=== PATIENT | male | born 1940 | race Caucasian/White ===

== ENCOUNTER 2020-04-15 10:46 | Day surgery (SDC) | payer MEDICARE, BC ==
[~2020-04-15] VITALS: Ht 177.8 cm; Wt 98.4 kg
[~2020-04-15 10:46] MED LIST: ALBU90OI INH; ALBU90OI6; ALBU90OI61; AMLO5 PO; AMOCLA875 PO; ASPI81CH; ASPI81CH PO; Aspir 8181 MG PO; Aspirin EC81 MG PO; COQ-10100 MG PO; Diovan320 MG; Diovan320 MG PO; FLONASE ALLERG9.9 M2; FLOVENT HFA12 GM; FLUT110OIA; FLUT44OIA; MONT10T; MONT10T PO; Miralax17 GM PO; NEBI5 PO; OMEP20ER; OMEPRAZOLE MAGN20 MG PO; SILD25T PO; SIMV40 PO; UBID10; Viagra100 MG PO; Zocor20 MG
[2020-04-15] MEDS ORDERED: LISI20 PO (11:28)
--- NOTE | 2020-04-15 12:12 | NUR ---
04/15/[address] RUNNING BEHIND. PT NOTIFIED,STATES COMFORTABLE,FAMILY NOT NEEDED TO BE NOTIFIED,CALL LIGHT WITHIN REACH.
--- NOTE | 2020-04-15 13:42 | NUR ---
04/15/20 1342 MERI RIOS UPON DC PT WAS UNABLE TO LOCATE WHITE UNDERSHIRT WITH HELP FROM STAFF.
== END 2020-04-15 13:40 | disposition home or self-care (01) ==
LOC: ORSCSDS 10:46
PROVIDERS: Internal Medicine Gastroenterology
PROC: 0DBH8ZX Excision of Cecum, Via Natural or Artificial Opening Endoscopic, Diagnostic (ICD-10-PCS; principal; 2020-04-15 12:00)
PROC: 0DBM8ZX Excision of Descending Colon, Via Natural or Artificial Opening Endoscopic, Diagnostic (ICD-10-PCS; principal; 2020-04-15 12:00)
PROC: 0DBK8ZX Excision of Ascending Colon, Via Natural or Artificial Opening Endoscopic, Diagnostic (ICD-10-PCS; principal; 2020-04-15 12:00)
DX: Z12.11 Encounter for screening for malignant neoplasm of colon (principal); Z86.010 Personal history of colon polyps; D12.0 Benign neoplasm of cecum; D12.2 Benign neoplasm of ascending colon; D12.4 Benign neoplasm of descending colon; K57.30 Diverticulosis of large intestine without perforation or abscess without bleeding; K64.8 Other hemorrhoids; Z87.891 Personal history of nicotine dependence; I10 Essential (primary) hypertension; J45.909 Unspecified asthma, uncomplicated; Z85.46 Personal history of malignant neoplasm of prostate; Z79.899 Other long term (current) drug therapy
CPT/HCPCS: 88305; J2704; J7120

== ENCOUNTER → 2020-11-19 | Outpatient (CLI) | payer MEDICARE, BC ==
[~2020-11-19] MED LIST changes: +LISI20 PO
== END | disposition home or self-care (01) ==
LOC: LAB SHORT 10:44 → LAB 10:44
DX: D22.5 Melanocytic nevi of trunk (principal)
CPT/HCPCS: 88305; 88342

== ENCOUNTER → 2020-11-27 | Outpatient (CLI) | payer MEDICARE, BC | END | disposition home or self-care (01) | LOC: LAB SHORT 08:00 → LAB 08:00 | DX: D22.5 Melanocytic nevi of trunk (principal) | CPT/HCPCS: 88305 ==

== ENCOUNTER 2023-09-22 06:25 | Day surgery (SDC) | payer MEDICARE, BC ==
[~2023-09-22] VITALS: Ht 177.8 cm; Wt 90.6 kg
[~2023-09-22 06:25] MED LIST changes: +Lactated Ringer's 1,000 ML IV ONE
[2023-09-22] MEDS ORDERED: FentaNYL Citrate 50 MCG/ML 2 ML Injection ONE ×2 (06:51→07:30)
[2023-09-22] MEDS ORDERED: propofoL 20 ML IV ONE ×2 (06:52→06:56)
[2023-09-22] MEDS ORDERED: Lidocaine 2%-Epineph 1:100000 20 ML MDV ONE (07:06)
[2023-09-22] MEDS ORDERED: SuccINYLCHOLINE Chloride 100 MG/5 ML 5MLSYR ONE (07:29)
[2023-09-22] MEDS ORDERED: Rocuronium Bromide 10 MG/ML 5ML Injection IV ONE (07:29)
[2023-09-22] MEDS ORDERED: Lactated Ringer's 1,000 ML IV ONE ×2 (07:29→08:43)
[2023-09-22] MEDS ORDERED: ePHEDrine Sulfate 50 MG/ML 1ML Injection ONE (07:55)
[2023-09-22] MEDS ORDERED: Ondansetron HCl 2 MG / ML 2ML Vial ONE (07:55)
[2023-09-22] MEDS ORDERED: Dexamethasone Sod Phos 10 MG/ML 1ML VIAL ONE (08:02)
[2023-09-22] MEDS ORDERED: Sodium Chloride 0.9% Inj 10 ML Vial INJ ONE (08:07)
--- NOTE | 2023-09-22 08:21 | NUR ---
09/22/23 0821 Monae Moore 5ML OF 2% LIDOCAINE WITH EPI 1:100,000 MIXED 1:1 WITH NORMAL SALINE TO MAKE 10MLS OF 1% LIDOCAINE WITH EPI 1:200,000 FOR INJECTION AT [facility] BY DR SIMON. 2.5ML TOTAL INJECTED.
[2023-09-22] MEDS ORDERED: HYDROmorphone HCl/Pf 1MG SYR ONE (08:30)
[2023-09-22] MEDS ORDERED: Ketorolac Tromethamine 30mg Vial ONE (10:05)
--- NOTE | 2023-09-22 10:18 | NUR ---
09/22/23 1018 Dre Ivey PT TRYING TO CLIMB OUT OF THE FOOT OF THE BED. DRE REID RN AND LINDEN BUSTOS HELPED PT GET BACK INTO THE TOP OF THE BED. PT WAS PUT BACK UP IN BED BUT THEN TRIED TO GET OUT AGAIN. WAS BROUGHT BACK INTO PACU TO SEE IF SHE COULD ASSIST WITH HIM TO KEEP HIM CALM AND TO HELP ORIENT HIM. LINDEN HARGROVE BROUGHT PT (SONAL) BACK.
--- NOTE | 2023-09-22 10:24 | NUR ---
09/22/23 [facility] Dre Ivey, LINDEN ASSISTING WITH CATH.
[2023-09-22] MEDS ORDERED: Phenylephrine HCl 100 MCG/ML-NS 10MLSYR (1MG/10ML) ONE (11:01)
[2023-09-22 11:19] VITALS: BP 145/82
== END 2023-09-22 14:27 | disposition home or self-care (01) ==
LOC: ORSCSDS 06:25
PROVIDERS: Otolaryngology
PROC: 0GTH0ZZ Resection of Right Thyroid Gland Lobe, Open Approach (ICD-10-PCS; principal; 2023-09-22 07:30)
DX: D34 Benign neoplasm of thyroid gland (principal); I10 Essential (primary) hypertension; J45.909 Unspecified asthma, uncomplicated; Z79.899 Other long term (current) drug therapy
CPT/HCPCS: 88307; J0330; J1100; J1170; J1885; J2371; J2405; J2704; J3010; J7120

== ENCOUNTER 2024-04-10 13:25 | Emergency (ER) | payer MEDICARE, BC ==
[~2024-04-10] VITALS: Ht 177.8 cm; Wt 90.7 kg
[~2024-04-10 13:25] MED LIST changes: -Lactated Ringer's 1,000 ML IV ONE
[2024-04-10] MEDS ORDERED: ATOR40TA PO (14:20)
[2024-04-10] MEDS ORDERED: PANT40 PO (14:21)
[2024-04-10] MEDS ORDERED: CLOP75 PO (14:21)
[2024-04-10] MEDS ORDERED: OXYB5 PO (14:22)
[2024-04-10] MEDS ORDERED: LOSA50 (14:22)
[2024-04-10 14:26] LABS: BASOPHILS ABSOLUTE AUTO 0.06 K/mm3 (0.00-0.23); BASOPHILS PERCENT AUTO 1 % (0-2); EOSINOPHILS ABSOLUTE AUTO 0.04 K/mm3 (0.00-0.68); EOSINOPHILS PERCENT AUTO 1 % (0-6); Hematocrit 36.5 % (37.0-53.0); Hemoglobin 12.2 g/dL (13.5-17.5); IMMATURE GRAN ABSOLUTE AUTO 0.02 K/mm3 (0.00-0.10); IMMATURE GRAN PERCENT AUTO 0 % (0-1); LYMPHOCYTES ABSOLUTE AUTO 1.63 K/mm3 (0.84-5.20); LYMPHOCYTES PERCENT AUTO 22 % (21-46); MONOCYTES PERCENT AUTO 11 % (4-13); Mean Corpuscular HGB 29.5 pg (26.0-34.0); Mean Corpuscular HGB Conc 33.4 g/dL (31.5-36.5); Mean Corpuscular Volume 88 fL (80-100); Mean Platelet Volume 11.1 fL (9.1-12.4); NEUTROPHILS ABSOLUTE AUTO 4.75 K/mm3 (1.96-9.15); NEUTROPHILS PERCENT AUTO 65 % (41-73); Platelet Count 189 K/mm3 (150-400); RDW Standard Deviation 48.5 fL (35.1-46.3); Red Blood Cell Count 4.13 M/mm3 (4.30-5.90)
[2024-04-10 14:50] LABS: Albumin, Blood 3.6 g/dL (3.4-5.0); Albumin/Globulin Ratio 1.2 (0.8-1.8); Bilirubin, Total 0.8 mg/dL (0.1-1.0); Calcium, Blood 8.5 mg/dL (8.5-10.1); Creatinine, Blood 1.24 mg/dL (0.60-1.20); Globulin, Blood 3.1 g/dL (2.2-4.0); Magnesium, Blood 2.2 mg/dL (1.6-2.4); Potassium, Blood 4.4 mmol/L (3.5-5.5); Total Protein, Blood 6.7 g/dL (6.4-8.2)
[2024-04-10 15:43] VITALS: BP 167/99
== END 2024-04-10 15:56 | disposition home or self-care (01) ==
LOC: ER 13:25
PROVIDERS: Student in an Organized Health Care Education/Training Program
DX: R00.8 Other abnormalities of heart beat (principal); I10 Essential (primary) hypertension; Z79.82 Long term (current) use of aspirin; Z79.02 Long term (current) use of antithrombotics/antiplatelets; Z79.51 Long term (current) use of inhaled steroids; Z79.899 Other long term (current) drug therapy; Z88.2 Allergy status to sulfonamides; Z88.1 Allergy status to other antibiotic agents
CPT/HCPCS: 80053; 83735; 85025; 93005; 93010; 99284-25